=== PATIENT | female | born 2000 | race African-American/Black ===

== ENCOUNTER 2022-05-07 05:07 | Emergency (ER) | payer MEDICAID, OTHER, SELFPAY ==
[2022-05-07] MEDS ORDERED: Dexamethasone 10 MG/ML VIAL ONE (06:23)
[2022-05-07] MEDS ORDERED: Dexamethasone 4 mg/ml Vial ONE (06:24)
[2022-05-07] MEDS ORDERED: Ibuprofen 200 MG TAB ONE (06:24)
[2022-05-07 06:50] LABS: Anion Gap 14 mmol/L (10-20); BUN (Urea Nitrogen) 12 mg/dL (7.0-18.7); Calc. Creatinine Clearance 0 mL/min (70-130); Calcium 9.4 mg/dL (7.8-10.44); Carbon Dioxide 21 mmol/L (22-29); Chloride 106 mmol/L (98-107); Estimated GFR 97; Glucose 92 mg/dL (70-105); Potassium 3.6 mmol/L (3.5-5.1); Sodium 137 mmol/L (136-145)
[2022-05-07 07:09] LABS: #Basophils 0.1 10x3/uL (0.0-0.2); #Eosinphils 0.2 10x3/uL (0.0-0.5); #Monocytes 0.4 10x3/uL (0.0-1.1); #Neutrophils 3.3 10x3/uL (1.5-8.4); %Basophils 0.7 % (0.0-2.0); %Eosinophils 2.6 % (0.0-6.0); %Lymphocytes 44.6 % (18.0-47.0); %Monocytes 5.4 % (0.0-10.0); %Neutrophils 46.4 % (40.0-75.0); Hemoglobin 11.2 g/dL (12.0-15.5); Mean Corpuscular HGB CONC 34.3 g/dL (32.0-36.0); Mean Corpuscular Hemoglobin 28.2 pg (27.0-33.0); Mean Corpuscular Volume 82.4 fl (81.6-98.3); Mean Platelet Volume 9.8 fl (7.4-10.4); Platelet Count 320 10x3/uL (150-450); RBC Distribution Width 13.7 % (11.5-14.5); Red Blood Cell (RBC) Count 3.97 10x6/uL (3.90-5.03); White Blood Cell (WBC) Count 7.2 10x3/uL (3.5-10.5)
[2022-05-07 08:06] LABS: SARS-CoV-2 NAA Rapid Test Not Detected (NotDetected)
[2022-05-07 08:38] LABS: BHCG - Serum Negative (NEGATIVE); Pregs Control Background? CLEAR/WHITE (CLR/WHITE); Pregs Control Bar Appear? YES (CONTROL BAR)
[2022-05-07] MEDS ORDERED: Iopamidol 370 76% 100 ML VIAL ONE (11:00)
== END 2022-05-07 09:55 | disposition home or self-care (01) ==
LOC: CSHERS 05:07
DX: R07.81 Pleurodynia (principal); Z20.822 Contact with and (suspected) exposure to COVID-19; Z87.891 Personal history of nicotine dependence
CPT/HCPCS: 36415; 70450; 71045; 71275; 80048; 84703; 85025; 85379; 93005; J1100; Q9967; U0002

== ENCOUNTER 2022-08-28 22:50 | Emergency (ER) | payer SELFPAY ==
[2022-08-29] MEDS ORDERED: HYDROcodone/Acetaminophen 5/325 mg Tablet ONE (00:05)
== END 2022-08-29 00:41 | disposition home or self-care (01) ==
LOC: CSHERS 22:50
DX: S83.92XA Sprain of unspecified site of left knee, initial encounter (principal); W21.05XA Struck by basketball, initial encounter; Y93.67 Activity, basketball; Z87.891 Personal history of nicotine dependence

== ENCOUNTER 2024-01-27 13:16 | Emergency (ER) | payer MEDICAID, SELFPAY ==
[2024-01-27] MEDS ORDERED: Ketorolac Tromethamine 30 MG (1 mL) VIAL ONE (13:55)
[2024-01-27 14:30] LABS: #Basophils 0.02 10x3/uL (0.0-0.2); #Eosinphils 0.06 10x3/uL (0.0-0.5); #Neutrophils 2.53 10x3/uL (1.5-8.4); %Basophils 0.4 % (0.0-2.0); %Eosinophils 1.2 % (0.0-6.0); %Lymphocytes 41.8 % (18.0-47.0); %Neutrophils 50.4 % (40.0-75.0); Hematocrit 33.8 % (34.9-44.5); Hemoglobin 11.9 g/dL (12.0-15.5); Mean Corpuscular HGB CONC 35.2 g/dL (32.0-36.0); Mean Corpuscular Hemoglobin 28.3 pg (27.0-33.0); Mean Corpuscular Volume 80.5 fL (81.6-98.3); Mean Platelet Volume 9.9 fL (7.4-10.4); Platelet Count 305 10x3/uL (150-450); RBC Distribution Width 14.8 % (11.5-14.5)
[2024-01-27 14:41] LABS: ALT (SGPT) 21 U/L (8-55); AST (SGOT) 19 U/L (5-34); Albumin 4.2 g/dL (3.5-5.0); Alkaline Phosphatase 104 U/L (40-110); Anion Gap 14 mmol/L (10-20); BUN (Urea Nitrogen) 15 mg/dL (7.0-18.7); Bilirubin, Total 0.3 mg/dL (0.2-1.2); CK (CPK) 191 U/L (29-168); Calc. Creatinine Clearance 0 mL/min (70-130); Calcium 10.1 mg/dL (7.8-10.44); Carbon Dioxide 24 mmol/L (22-29); Chloride 105 mmol/L (98-107); Estimated GFR 77; Globulin 3.9 g/dL (2.4-3.5); Glucose 89 mg/dL (70-105); Potassium 4.2 mmol/L (3.5-5.1); Protein, Total 8.1 g/dL (6.0-8.3); Sodium 139 mmol/L (136-145)
== END 2024-01-27 15:54 | disposition home or self-care (01) ==
LOC: CSHERS 13:16
DX: M94.0 Chondrocostal junction syndrome [Tietze] (principal); M62.838 Other muscle spasm; Z87.891 Personal history of nicotine dependence
CPT/HCPCS: 36416; 80053; 82550; 85025; 93005; 96372; J1885